=== PATIENT | female | born 1990 | race Caucasian/White ===

== ENCOUNTER → 2018-06-24 | Outpatient (CLI) | payer OTHER ==
--- NOTE | 2018-06-24 15:13 | CT ---
EXAMINATION TYPE: CT ankle RT wo con DATE OF EXAM: 06/24/2018 COMPARISON: None HISTORY: Swelling at both malleoli on RT ankle CT DLP: [address] of the right ankle with reconstruction imaging. TECHNIQUE: Unenhanced CT of the right ankle was performed with bone and soft tissue window settings s ubmitted in the axial coronal and sagittal planes. At a separate workstation 3-[id number] TR imaging was obta ined. FINDINGS: I do not see evidence for displaced fracture or dislocation. Ankle mortise is intact. Soft tissue swelling noted both medially and laterally. Underlying ligamentous injury is difficult to exclude. Consider MRI if felt to be indicated. No osseous lesion is noted. No fluid collections. IMPRESSION: 1. No evidence for a displaced fracture or dislocation of the right ankle. 2. Soft tissue swelling noted both medially and laterally as noted above.
== END | disposition home or self-care (01) ==
LOC: RADCTMAIN 14:36
PROVIDERS: ATTEND Orthopaedic Surgery
DX: S82.301A Unspecified fracture of lower end of right tibia, initial encounter for closed fracture (principal)

== ENCOUNTER → 2018-06-28 | Outpatient (CLI) | payer OTHER ==
[2018-06-28 12:33] LABS: HGB 13.2 gm/dL (11.4-16.0); MCH 34.1 pg (25.0-35.0); MCHC 33.9 g/dL (31.0-37.0); MCV 100.7 fL (80.0-100.0); Mean Platelet Volume 7.2; Platelet Count 282 k/uL (150-450); RBC 3.87 m/uL (3.80-5.40); RDW 12.6 % (11.5-15.5); WBC 7.3 k/uL (3.8-10.6)
[2018-06-28 13:50] LABS: Appearance,Urine Turbid (Clear); Bacteria,Urine Rare /hpf; Bilirubin,Urine Negative (Negative); Blood,Urine Negative (Negative); Color,Urine Yellow; Glucose,Urine (UA) Negative (Negative); Ketones,Urine Negative (Negative); Leukocyte Esterase,Urine Moderate (Negative); Mucus,Urine Few /hpf; Nitrite,Urine Negative (Negative); PH, Urine 8.5 (5.0-8.0); Protein,Urine 2+ (Negative); Specific Gravity,Urine 1.027 (1.001-1.035); Squamous Epithelial Cell,Urine 75 /hpf (0-4); WBC,Urine 18 /hpf (0-5)
[2018-06-28 18:18] LABS: Parathyroid Hormone Intact 80.8 pg/mL (14.0-72.0)
[2018-06-28 18:21] LABS: Albumin 4.6 g/dL (3.80-4.90); Albumin/Globulin Ratio 2.19 (1.60-3.17); Anion Gap 8.7 mmol/L (4.00-12.00); Calcium 9.5 mg/dL (8.7-10.3); Carbon Dioxide 28.3 mmol/L (21.6-31.8); Globulin 2.1 g/dL (1.6-3.3); Potassium 4.1 mmol/L (3.5-5.5); Total Protein 6.7 g/dL (6.2-8.2)
[2018-06-28 19:01] LABS: Vitamin D 25 Hydroxy 19.8 ng/mL (30.0-100.0)
== END | disposition home or self-care (01) ==
LOC: LABWHC1 11:52
PROVIDERS: ATTEND Physician Assistant
DX: S82.301D Unspecified fracture of lower end of right tibia, subsequent encounter for closed fracture with routine healing (principal)
CPT/HCPCS: 36415; 80053; 81001; 82306; 82310; 82652; 83970; 84100; 85027

== ENCOUNTER 2018-08-12 16:29 | Emergency (ER) | payer OTHER ==
[2018-08-12 17:49] LABS: HCT 39.5 % (34.0-46.0); HGB 13.1 gm/dL (11.4-16.0); MCH 33.7 pg (25.0-35.0); MCV 102.1 fL (80.0-100.0); Mean Platelet Volume 7.6; Platelet Count 220 k/uL (150-450); RBC 3.87 m/uL (3.80-5.40); RDW 12.2 % (11.5-15.5)
[2018-08-12 17:53] LABS: Appearance,Urine Clear (Clear); Bilirubin,Urine Negative (Negative); Blood,Urine Trace (Negative); Color,Urine Light Yellow; Glucose,Urine (UA) Negative (Negative); Ketones,Urine Negative (Negative); Leukocyte Esterase,Urine Negative (Negative); Nitrite,Urine Negative (Negative); PH, Urine 6.5 (5.0-8.0); Protein,Urine Negative (Negative); RBC,Urine 1 /hpf (0-5); Specific Gravity,Urine 1.004 (1.001-1.035); Squamous Epithelial Cell,Urine 4 /hpf (0-4); Urobilinogen,Urine <2.0 mg/dL (<2.0); WBC,Urine 4 /hpf (0-5)
[2018-08-12 18:04] LABS: ALT 25 U/L (9-52); AST 27 U/L (14-36); African American GFR (CKD) >90 (>60 ml/min/1.73 sqM); Albumin 4.6 g/dL (3.5-5.0); Alkaline Phosphatase 100 U/L (38-126); Anion Gap 9 mmol/L; Blood Urea Nitrogen 9 mg/dL (7-17); Calcium 10.1 mg/dL (8.4-10.2); Carbon Dioxide 28 mmol/L (22-30); Chloride 101 mmol/L (98-107); Glucose 94 mg/dL (74-99); Potassium 3.8 mmol/L (3.5-5.1); Sodium 138 mmol/L (137-145); Total Bilirubin 0.7 mg/dL (0.2-1.3); Total Protein 7.6 g/dL (6.3-8.2)
--- NOTE | 2018-08-12 18:23 | ED ---
Female Urogenital HPI - General Chief complaint: Vaginal Bleeding Stated complaint: BLEEDING, 5 WEEKS Time Seen by Provider: 08/12/18 16:42 Source: patient Mode of arrival: ambulatory Limitations: no limitations - History of Present Illness Initial comments: Patient is a 27-year-old, , five-week female presenting to emergency Department with vaginal bleeding. Patient reports this morning she noticed spotting and attempted to reestablish care with her previous campus receptionist but was not able to get in today. Patient does not report other vaginal discharge, vaginal itching, increased urgency or frequency or dysuria. Patient reports establishing her status using a home test. Patient is not concerned about STDs. Patient denies nausea, vomiting, diarrhea, abdominal pain or cramping. Patient reports experiencing spotting during her previous . Patient denies taking any medication to alleviate the symptoms. Patient reports Last Menstrual Period: 07/08/18 - Related Data Home Medications Medication Instructions Recorded Confirmed Bwb-Ctko-Iqmsd Acid 1 tab PO DAILY 04/16/15 04/22/15 [-U Capsule] Allergies Allergy/AdvReac Type Severity Reaction Status Date / Time No Known Allergies Allergy Verified 08/12/18 16:40 Review of Systems ROS Statement: Those systems with pertinent positive or pertinent negative responses have been documented in the HPI. ROS Other: All systems not noted in ROS Statement are negative. Past Medical History Past Medical History: No Reported History History of Any Multi-Drug Resistant Organisms: None Reported Past Surgical History: No Surgical Hx Reported Past Anesthesia/Blood Transfusion Reactions: No Reported Reaction Past Psychological History: No Psychological Hx Reported Smoking Status: Never smoker Past Alcohol Use History: None Reported Past Drug Use History: None Reported - Past Family History Mother Family Medical History: No Reported History General Exam Limitations: no limitations General appearance: alert, in no apparent distress Head exam: Present: atraumatic, normocephalic, normal inspection Eye exam: Present: normal appearance, PERRL, EOMI Pupils: Present: normal accommodation ENT exam: Present: normal exam, mucous membranes moist Neck exam: Present: normal inspection, full ROM Respiratory exam: Present: normal lung sounds bilaterally Cardiovascular Exam: Present: regular rate, normal rhythm, normal heart sounds GI/Abdominal exam: Present: soft, normal bowel sounds. Absent: distended, tenderness, guarding, rebound, rigid External exam: Present: normal external exam. Absent: erythema, swelling Speculum exam: Present: normal speculum exam. Absent: erythema, vaginal discharge, cervical discharge, vaginal bleeding, foreign body By manual exam: Present: normal by manual exam. Absent: cervical motion tenderness, adnexal tenderness, adnexal mass Extremities exam: Present: normal inspection, full ROM, normal capillary refill. Absent: pedal edema Back exam: Present: normal inspection, full ROM. Absent: CVA tenderness (R), CVA tenderness (L) Neurological exam: Present: alert, oriented X3 Psychiatric exam: Present: normal affect, normal mood Skin exam: Present: warm, intact, normal color Course Vital Signs 08/12/18 16:38 Temperature 98.3 F Pulse Rate 103 H Respiratory 20 Rate Blood Pressure 158/88 O2 Sat by Pulse 99 Oximetry Medical Decision Making - Medical Decision Making Patient is a 27-year-old 5 week female presents emergency department for vaginal bleeding. UA is positive for trace amounts of blood otherwise unremarkable. Pelvic exam is negative for blood, discharge, cervical motion tenderness or adnexal masses. Patient advised to follow-up with OB. Beta Quant is approximately 750 so a transvaginal ultrasound is not warranted because it will most likely not be able to detect an intrauterine Strict return parameters were thoroughly discussed with patient. The case was discussed with Dr. Jimenez Who is in agreement with the treatment plan. - Lab Data Result diagrams: 08/12/18 17:30 08/12/18 17:30 Lab Results 08/12/18 08/12/18 08/12/18 Range/Units 17:30 17:30 17:30 WBC 7.0 (3.8-10.6) k/uL RBC 3.87 (3.80-5.40) m/uL Hgb 13.1 (11.4-16.0) gm/dL Hct 39.5 (34.0-46.0) % MCV 102.1 H (80.0-100.0) fL MCH 33.7 (25.0-35.0) pg MCHC 33.0 (31.0-37.0) g/dL RDW 12.2 (11.5-15.5) % Plt Count 220 (150-450) k/uL Sodium (137-145) mmol/L Potassium (3.5-5.1) mmol/L Chloride (98-107) mmol/L Carbon Dioxide (22-30) mmol/L Anion Gap mmol/L BUN (7-17) mg/dL Creatinine (0.52-1.04) mg/dL Est GFR (CKD-EPI)AfAm (>60 ml/min/1.73 sqM) Est GFR (CKD-EPI)NonAf (>60 ml/min/1.73 sqM) Glucose (74-99) mg/dL Calcium (8.4-10.2) mg/dL Total Bilirubin (0.2-1.3) mg/dL AST (14-36) U/L ALT (9-52) U/L Alkaline Phosphatase (38-126) U/L Total Protein (6.3-8.2) g/dL Albumin (3.5-5.0) g/dL HCG, Quant mIU/mL Urine Color Light Yellow Urine Appearance Clear (Clear) Urine pH 6.5 (5.0-8.0) Ur Specific [place] 1.004 (1.001-1.035) Urine Protein Negative (Negative) Urine Glucose (UA) Negative (Negative) Urine Ketones Negative (Negative) Urine Blood Trace H (Negative) Urine Nitrite Negative (Negative) Urine Bilirubin Negative (Negative) Urine Urobilinogen <2.0 (<2.0) mg/dL Ur Leukocyte Esterase Negative (Negative) Urine RBC 1 (0-5) /hpf Urine WBC 4 (0-5) /hpf Ur Squamous Epith Cells 4 (0-4) /hpf Blood Type O Positive Blood Type Recheck No Antibody Screen NEGATIVE Spec Expiration Date 08/15/2018232908/12/18 08/12/18 Range/Units 17:30 17:30 WBC (3.8-10.6) k/uL RBC (3.80-5.40) m/uL Hgb (11.4-16.0) gm/dL Hct (34.0-46.0) % MCV (80.0-100.0) fL MCH (25.0-35.0) pg MCHC (31.0-37.0) g/dL RDW (11.5-15.5) % Plt Count (150-450) k/uL Sodium 138 (137-145) mmol/L Potassium 3.8 (3.5-5.1) mmol/L Chloride 101 (98-107) mmol/L Carbon Dioxide 28 (22-30) mmol/L Anion Gap 9 mmol/L BUN 9 (7-17) mg/dL Creatinine 0.79 (0.52-1.04) mg/dL Est GFR (CKD-EPI)AfAm >90 (>60 ml/min/1.73 sqM) Est GFR (CKD-EPI)NonAf >90 (>60 ml/min/1.73 sqM) Glucose 94 (74-99) mg/dL Calcium 10.1 (8.4-10.2) mg/dL Total Bilirubin 0.7 (0.2-1.3) mg/dL AST 27 (14-36) U/L ALT 25 (9-52) U/L Alkaline Phosphatase 100 (38-126) U/L Total Protein 7.6 (6.3-8.2) g/dL Albumin 4.6 (3.5-5.0) g/dL HCG, Quant 762.8 mIU/mL Urine Color Urine Appearance (Clear) Urine pH (5.0-8.0) Ur Specific [place] (1.001-1.035) Urine Protein (Negative) Urine Glucose (UA) (Negative) Urine Ketones (Negative) Urine Blood (Negative) Urine Nitrite (Negative) Urine Bilirubin (Negative) Urine Urobilinogen (<2.0) mg/dL Ur Leukocyte Esterase (Negative) Urine RBC (0-5) /hpf Urine WBC (0-5) /hpf Ur Squamous Epith Cells (0-4) /hpf Blood Type Blood Type Recheck Antibody Screen Spec Expiration Date Disposition Clinical Impression: Vaginal bleeding Disposition: HOME SELF-CARE Condition: Stable Instructions (If sedation given, give patient instructions): Ectopic (DC) Additional Instructions: Please follow up with OB. Please return to emergency department if symptoms worsen Is patient prescribed a controlled substance at d/c from ED?: No Referrals: Darrin Fisher MD [Primary Care Provider] - 1-2 days Regina Hammer MD [STAFF PHYSICIAN] - 1-2 days Time of Disposition: 18:42
[2018-08-12 19:20] VITALS: BP 144/71; PULSE 97; RESP 18; TEMP 98.1
== END 2018-08-12 19:20 | disposition home or self-care (01) ==
LOC: EC 16:29
DX: O20.9 Hemorrhage in early pregnancy, unspecified (principal); Z3A.01 Less than 8 weeks gestation of pregnancy
CPT/HCPCS: 36415; 80053; 81001; 84702; 85027; 86850; 86900; 86901; 99284

== ENCOUNTER → 2018-08-15 | Outpatient (CLI) | payer OTHER | END | disposition home or self-care (01) | LOC: LABWHC1 16:32 | PROVIDERS: ATTEND Obstetrics & Gynecology | DX: O20.0 Threatened abortion (principal); Z3A.00 Weeks of gestation of pregnancy not specified | CPT/HCPCS: 36415; 84702 ==

== ENCOUNTER 2018-08-22 16:32 | Emergency (ER) | payer OTHER ==
[2018-08-22 16:39] VITALS: BP 151/83; RESP 18; TEMP 98.3
[2018-08-22] MEDS ORDERED: SODIUM CHLORIDE 0.9% 1,000 ML IV ONE (17:03)
--- NOTE | 2018-08-22 17:03 | ED ---
General Adult HPI - General Source: patient, RN notes reviewed Mode of arrival: ambulatory Limitations: no limitations <Khanh Underwood - Last Filed: 08/22/18 19:55> <Kenny Marinelli - Last Filed: 08/22/18 20:32> - General Chief complaint: Vaginal Bleeding Stated complaint: Abn labs Time Seen by Provider: 08/22/18 16:47 - History of Present Illness Initial comments: 27-year-old currently 7 weeks presents to the emergency department for a chief complaint of vaginal bleeding. Patient states she has been vaginal bleeding for about one week. States it is very light in nature. Patient states last week her hCG levels were trending downward. However she saw her primary care provider today and had hCG levels repeated in nature and it upward to 1500. Patient states she is confused. She thought she was having a miscarriage but now is unsure. States that she then called the OB office and they recommended she go to the emergency department for possible ectopic. Patient admits to mild discomfort in the lower abdomen. Denies any significant pain. Denies any fevers or chills. Patient has not yet followed up with an OB at an appointment.Patient has no other complaints at this time including shortness of breath, chest pain, nausea or vomiting, headache, or visual changes. (Khanh Underwood) - Related Data Home Medications Medication Instructions Recorded Confirmed Dextroamphetamine/Amphetamine 30 mg PO DAILY 08/22/18 08/22/18 [Adderall Xr] Allergies Allergy/AdvReac Type Severity Reaction Status Date / Time No Known Allergies Allergy Verified 08/22/18 17:27 Review of Systems ROS Other: All systems not noted in ROS Statement are negative. <Khanh Underwood - Last Filed: 08/22/18 19:55> ROS Other: All systems not noted in ROS Statement are negative. <Kenny Marinelli - Last Filed: 08/22/18 20:32> ROS Statement: Those systems with pertinent positive or pertinent negative responses have been documented in the HPI. Past Medical History Past Medical History: No Reported History History of Any Multi-Drug Resistant Organisms: None Reported Past Surgical History: No Surgical Hx Reported Past Anesthesia/Blood Transfusion Reactions: No Reported Reaction Past Psychological History: No Psychological Hx Reported Smoking Status: Never smoker Past Alcohol Use History: None Reported Past Drug Use History: None Reported - Past Family History Mother Family Medical History: No Reported History <Khanh Underwood P - Last Filed: 08/22/18 19:55> General Exam Limitations: no limitations General appearance: alert, in no apparent distress Head exam: Present: atraumatic, normocephalic, normal inspection Eye exam: Present: normal appearance, PERRL, EOMI. Absent: scleral icterus, conjunctival injection, periorbital swelling ENT exam: Present: normal exam, mucous membranes moist Neck exam: Present: normal inspection, full ROM. Absent: tenderness, meningismus, lymphadenopathy Respiratory exam: Present: normal lung sounds bilaterally. Absent: respiratory distress, wheezes, rales, rhonchi, stridor Cardiovascular Exam: Present: regular rate, normal rhythm, normal heart sounds. Absent: systolic murmur, diastolic murmur, rubs, gallop, clicks GI/Abdominal exam: Present: soft, normal bowel sounds. Absent: distended, te nderness, guarding, rebound, rigid Neurological exam: Present: alert, oriented X3, CN II-XII intact Psychiatric exam: Present: normal affect, normal mood <Khanh Underwood P - Last Filed: 08/22/18 19:55> Course Vital Signs 08/22/18 08/22/18 16:36 19:42 Temperature 98.3 F Pulse Rate 121 H 102 H Respiratory 18 Rate Blood Pressure 151/83 O2 Sat by Pulse 100 Oximetry Medical Decision Making - Lab Data Result diagrams: 08/22/18 17:15 08/22/18 17:15 <Khanh Underwood P - Last Filed: 08/22/18 19:55> - Lab Data Result diagrams: 08/22/18 17:15 08/22/18 17:15 <Kenny Marinelli N - Last Filed: 08/22/18 20:32> - Medical Decision Making 27-year-old female with a last menstrual period of July 08 presents to the emergency department for inconsistent hCG levels and vaginal bleeding. Patient initially had hCG level of 762 on 08/12/2018 and 548 on 08/15/2018. Apparently earlier today patient had an hCG of 1700. This was repeated tonight and it is n ow 1000. Exam is generally unremarkable. Minimal lower abdominal discomfort on exam but no tenderness. CBC CMP unremarkable. ultrasound showed no IUP at this time. However it did show a prominent volume of complex peritoneal fluid, unable to see ovaries. Dr. Marinelli spoke with Dr. Rodarte. (Khanh Underwood) Patient with abnormal trending hCG, vaginal bleeding, minimal abdominal pain. Today her hCG is 1100. Ultrasound shows complex fluid collection within the peritoneum. Adnexa was not visualized on ultrasound, there is no intrauterine . There is concern for ectopic, I did discuss his case with Dr. Rodarte, who is able to review the office notes and does feel this patient has an ectopic . She recommends methotrexate. This is administered in the emergency department. Did reevaluate the patient, she is resting comfortably, no abdomi nal tenderness on exam. Heart rate improved to 90s with 1 L of IV hydration. Other vital signs are stable. She is eager for discharge. She will call the office in the morning for close follow-up. (Kenny Marinelli) - Lab Data Lab Results 08/22/18 08/22/18 08/22/18 Range/Units 17:15 17:15 18:10 WBC 11.9 H (3.8-10.6) k/uL RBC 3.41 L (3.80-5.40) m/uL Hgb 11.5 (11.4-16.0) gm/dL Hct 34.9 (34.0-46.0) % MCV 102.3 H (80.0-100.0) fL MCH 33.8 (25.0-35.0) pg MCHC 33.1 (31.0-37.0) g/dL RDW 13.6 (11.5-15.5) % Plt Count 276 (150-450) k/uL Neutrophils % 82 % Lymphocytes % 12 % Monocytes % 4 % Eosinophils % 2 % Basophils % 0 % Neutrophils # 9.8 H (1.3-7.7) k/uL Lymphocytes # 1.4 (1.0-4.8) k/uL Monocytes # 0.4 (0-1.0) k/uL Eosinophils # 0.2 (0-0.7) k/uL Basophils # 0.0 (0-0.2) k/uL Macrocytosis Slight Sodium 137 (137-145) mmol/L Potassium 3.6 (3.5-5.1) mmol/L Chloride 100 (98-107) mmol/L Carbon Dioxide 26 (22-30) mmol/L Anion Gap 11 mmol/L BUN 15 (7-17) mg/dL Creatinine 0.77 (0.52-1.04) mg/dL Est GFR (CKD-EPI)AfAm >90 (>60 ml/min/1.73 sqM) Est GFR (CKD-EPI)NonAf >90 (>60 ml/min/1.73 sqM) Glucose 94 (74-99) mg/dL Calcium 9.8 (8.4-10.2) mg/dL Total Bilirubin 1.4 H (0.2-1.3) mg/dL AST 42 H (14-36) U/L ALT 27 (9-52) U/L Alkaline Phosphatase 109 (38-126) U/L Total Protein 7.6 (6.3-8.2) g/dL Albumin 4.7 (3.5-5.0) g/dL HCG, Quant 1094.3 mIU/mL Urine Color Yellow Urine Appearance Cloudy H (Clear) Urine pH 6.0 (5.0-8.0) Ur Specific [place] 1.008 (1.001-1.035) Urine Protein Trace H (Negative) Urine Glucose (UA) Negative (Negative) Urine Ketones Negative (Negative) Urine Blood Moderate H (Negative) Urine Nitrite Negative (Negative) Urine Bilirubin Negative (Negative) Urine Urobilinogen <2.0 (<2.0) mg/dL Ur Leukocyte Esterase Moderate H (Negative) Urine RBC 3 (0-5) /hpf Urine WBC 37 H (0-5) /hpf Ur Squamous Epith Cells 12 H (0-4) /hpf Amorphous Sediment Rare H (None) /hpf Urine Bacteria Rare H (None) /hpf Urine Mucus Rare H (None) /hpf Urine HCG, Qual (Not Detectd) 08/22/18 Range/Units 18:10 WBC (3.8-10.6) k/uL RBC (3.80-5.40) m/uL Hgb (11.4-16.0) gm/dL Hct (34.0-46.0) % MCV (80.0-100.0) fL MCH (25.0-35.0) pg MCHC (31.0-37.0) g/dL RDW (11.5-15.5) % Plt Count (150-450) k/uL Neutrophils % % Lymphocytes % % Monocytes % % Eosinophils % % Basophils % % Neutrophils # (1.3-7.7) k/uL Lymphocytes # (1.0-4.8) k/uL Monocytes # (0-1.0) k/uL Eosinophils # (0-0.7) k/uL Basophils # (0-0.2) k/uL Macrocytosis Sodium (137-145) mmol/L Potassium (3.5-5.1) mmol/L Chloride (98-107) mmol/L Carbon Dioxide (22-30) mmol/L Anion Gap mmol/L BUN (7-17) mg/dL Creatinine (0.52-1.04) mg/dL Est GFR (CKD-EPI)AfAm (>60 ml/min/1.73 sqM) Est GFR (CKD-EPI)NonAf (>60 ml/min/1.73 sqM) Glucose (74-99) mg/dL Calcium (8.4-10.2) mg/dL Total Bilirubin (0.2-1.3) mg/dL AST (14-36) U/L ALT (9-52) U/L Alkaline Phosphatase (38-126) U/L Total Protein (6.3-8.2) g/dL Albumin (3.5-5.0) g/dL HCG, Quant mIU/mL Urine Color Urine Appearance (Clear) Urine pH (5.0-8.0) Ur Specific [place] (1.001-1.035) Urine Protein (Negative) Urine Glucose (UA) (Negative) Urine Ketones (Negative) Urine Blood (Negative) Urine Nitrite (Negative) Urine Bilirubin (Negative) Urine Urobilinogen (<2.0) mg/dL Ur Leukocyte Esterase (Negative) Urine RBC (0-5) /hpf Urine WBC (0-5) /hpf Ur Squamous Epith Cells (0-4) /hpf Amorphous Sediment (None) /hpf Urine Bacteria (None) /hpf Urine Mucus (None) /hpf Urine HCG, Qual Detected (Not Detectd) Disposition <Khanh Underwood P - Last Filed: 08/22/18 19:55> Is patient prescribed a controlled substance at d/c from ED?: No Time of Disposition: 20:32 <RenétaylerKenny - Last Filed: 08/22/18 20:32> Clinical Impression: Ectopic without intrauterine Disposition: HOME SELF-CARE Condition: Fair Instructions (If sedation given, give patient instructions): Methotrexate (By injection), Ectopic (DC) Referrals: Darrin Fisher MD [Primary Care Provider] - 1-2 days Regina Hammer MD [STAFF PHYSICIAN] - 1-2 days Sahara Rodarte DO [Doctor of Osteopathic Medicine] - 1-2 days
[2018-08-22 17:26] LABS: Basophils % (A) 0 %; Eosinophils # (A) 0.2 k/uL (0-0.7); Eosinophils % (A) 2 %; HCT 34.9 % (34.0-46.0); HGB 11.5 gm/dL (11.4-16.0); Lymphocytes # (A) 1.4 k/uL (1.0-4.8); Lymphocytes % (A) 12 %; MCH 33.8 pg (25.0-35.0); MCHC 33.1 g/dL (31.0-37.0); MCV 102.3 fL (80.0-100.0); Macrocytosis Slight; Mean Platelet Volume 7.7; Monocytes # (A) 0.4 k/uL (0-1.0); Monocytes % (A) 4 %; Neutrophils # (A) 9.8 k/uL (1.3-7.7); Neutrophils % (A) 82 %; Platelet Count 276 k/uL (150-450); RBC 3.41 m/uL (3.80-5.40); RDW 13.6 % (11.5-15.5); WBC 11.9 k/uL (3.8-10.6)
[2018-08-22 17:35] LABS: ALT 27 U/L (9-52); AST 42 U/L (14-36); African American GFR (CKD) >90 (>60 ml/min/1.73 sqM); Albumin 4.7 g/dL (3.5-5.0); Alkaline Phosphatase 109 U/L (38-126); Anion Gap 11 mmol/L; Blood Urea Nitrogen 15 mg/dL (7-17); Calcium 9.8 mg/dL (8.4-10.2); Carbon Dioxide 26 mmol/L (22-30); Chloride 100 mmol/L (98-107); Glucose 94 mg/dL (74-99); Potassium 3.6 mmol/L (3.5-5.1); Sodium 137 mmol/L (137-145); Total Bilirubin 1.4 mg/dL (0.2-1.3); Total Protein 7.6 g/dL (6.3-8.2)
[2018-08-22 17:51] LABS: HCG,Quantitative Serum 1094.3 mIU/mL
[2018-08-22 19:22] LABS: Appearance,Urine Cloudy (Clear); Bilirubin,Urine Negative (Negative); Blood,Urine Moderate (Negative); Color,Urine Yellow; Glucose,Urine (UA) Negative (Negative); Ketones,Urine Negative (Negative); Leukocyte Esterase,Urine Moderate (Negative); Nitrite,Urine Negative (Negative); Protein,Urine Trace (Negative); RBC,Urine 3 /hpf (0-5); Specific Gravity,Urine 1.008 (1.001-1.035); Squamous Epithelial Cell,Urine 12 /hpf (0-4); Urobilinogen,Urine <2.0 mg/dL (<2.0); WBC,Urine 37 /hpf (0-5)
--- NOTE | 2018-08-22 19:22 | US ---
EXAMINATION TYPE: OB<=14 wks transvag DATE OF EXAM: 08/22/2018 6:04 PM COMPARISON: NONE CLINICAL HISTORY: pain. Bleeding had miscarriage x 2 weeks ago beta went up from 500 to 1094.3. EXAM PERFORMED: Transvaginal (TV) and Transabdominal (TA) EXAM MEASUREMENTS: GESTATIONAL AGE / DATING MATERNAL ANATOMY Uterus: 7.4 x 4.0 x 6.0 cm Right Ovary: Obscured by fluid and bowel. Left Ovary: Obscured by fluid and bowel. Post CDS / Adnexa: Complex free fluid visualized. Presence of free fluid: Yes GESTATION / SURVEY IUP: No IUP seen at this time. Beta HcG (if available): 1094.3 IMPRESSION: 1. PROMINENT VOLUME OF COMPLEX PERITONEAL FLUID VISUALIZED; UNABLE TO SEE OVARIES AT THIS TIME. 2. NO IUP SEEN AT THIS TIME. MTDD
[2018-08-22 19:23] LABS: Amorphous Sediment,Urine Rare /hpf; Bacteria,Urine Rare /hpf; Mucus,Urine Rare /hpf
[2018-08-22 19:42] VITALS: PULSE 102
[2018-08-22] MEDS ORDERED: METHOTREXATE SODIUM (PF) 25 MG/ML 2 ML VIAL IM ONE (20:19)
== END 2018-08-22 21:30 | disposition home or self-care (01) ==
LOC: EC 16:32
DX: O00.90 Unspecified ectopic pregnancy without intrauterine pregnancy (principal); Z3A.01 Less than 8 weeks gestation of pregnancy; Z79.899 Other long term (current) drug therapy
CPT/HCPCS: 36415; 80053; 85025; 81001; 81025; 84702; 76801; 99284; 96360; 96372; J9260; 76817

== ENCOUNTER 2018-08-23 11:46 | Emergency (ER) | payer OTHER ==
[2018-08-23] MEDS ORDERED: SODIUM CHLORIDE 0.9% 1,000 ML IV ONE (11:56)
--- NOTE | 2018-08-23 12:19 | ED ---
Female Urogenital HPI - General Chief complaint: Abdominal Pain Stated complaint: Abd.pain Time Seen by Provider: 08/23/18 11:56 Source: patient, RN notes reviewed, old records reviewed Mode of arrival: ambulatory Limitations: no limitations - History of Present Illness Initial comments: This is a 27-year-old female the ER for evaluation. Patient has history of known ectopic sent to ER by OB who did outpatient ultrasound today and noticed blood in her pelvis. Patient was in our emergency room yesterday was given methotrexate for ectopic . Patient states she developed increasing pain and vaginal bleeding over the night. Weakness feels dehydrated and feels near syncopal. Patient presents to ER complaining of abdominal pain and thinks states that she feels like she is dehydrated currently. MD Complaint: vaginal bleeding, pelvic pain -: days(s) Location: suprapubic Severity: severe Severity scale (1-10): 9 Quality: sharp, aching Consistency: constant Improves with: none Worsens with: none Last Menstrual Period: 07/08/18 Patient : Yes (With known ectopic) Associated Symptoms: vaginal bleeding, abdominal pain, nausea/vomiting, weakness - Related Data Home Medications Medication Instructions Recorded Confirmed Dextroamphetamine/Amphetamine 30 mg PO DAILY 08/22/18 08/23/18 [Adderall Xr] Wqi-Kmsd-Opunh Acid 1 cap PO DAILY 08/23/18 08/23/18 [-U Capsule (formulary)] Allergies Allergy/AdvReac Type Severity Reaction Status Date / Time No Known Allergies Allergy Verified 08/23/18 12:31 Review of Systems ROS Statement: Those systems with pertinent positive or pertinent negative responses have been documented in the HPI. ROS Other: All systems not noted in ROS Statement are negative. Past Medical History Past Medical History: No Reported History History of Any Multi-Drug Resistant Organisms: None Reported Past Surgical History: No Surgical Hx Reported Past Anesthesia/Blood Transfusion Reactions: No Reported Reaction Past Psychological History: No Psychological Hx Reported Smoking Status: Never smoker Past Alcohol Use History: None Reported Past Drug Use History: None Reported - Past Family History Mother Family Medical History: No Reported History General Exam Limitations: no limitations General appearance: alert, in no apparent distress Head exam: Present: atraumatic, normocephalic, normal inspection Eye exam: Present: normal appearance, PERRL, EOMI. Absent: scleral icterus, conjunctival injection, periorbital swelling ENT exam: Present: normal exam, mucous membranes moist Neck exam: Present: normal inspection. Absent: tenderness, meningismus, lymphadenopathy Respiratory exam: Present: normal lung sounds bilaterally. Absent: respiratory distress, wheezes, rales, rhonchi, stridor Cardiovascular Exam: Present: normal rhythm, tachycardia, normal heart sounds. Absent: systolic murmur, diastolic murmur, rubs, gallop, clicks GI/Abdominal exam: Present: soft, distended, tenderness, guarding, normal bowel sounds. Absent: rebound, rigid Extremities exam: Present: normal inspection, full ROM, normal capillary refill. Absent: tenderness, pedal edema, joint swelling, calf tenderness Back exam: Present: normal inspection Neurological exam: Present: alert, oriented X3, CN II-XII intact Psychiatric exam: Present: normal affect, normal mood Skin exam: Present: warm, dry, intact, normal color. Absent: rash Course Vital Signs 08/23/18 08/23/18 11:52 12:50 Temperature 97.6 F Pulse Rate 126 H 96 Respiratory 20 18 Rate Blood Pressure 108/74 123/75 O2 Sat by Pulse 98 100 Oximetry - Reevaluation(s) Reevaluation #1: 08/23/18 13:05 Medical record is reviewed Reevaluation #2: 08/23/18 13:05 Hemoglobin has dropped from 11.5 to 9 Medical Decision Making - Medical Decision Making 27 female the ER for evaluation. Patient is history of ectopic given methotrexate now with rupture. Hemoglobin is drop 3 times. Patient will be admitted for surgery by OB. Spoke with Dr. Rodarte who is agreeable accepts patient - Lab Data Result diagrams: 08/23/18 11:55 08/23/18 11:55 Lab Results 08/23/18 08/23/18 Range/Units 11:55 11:55 WBC 10.5 (3.8-10.6) k/uL RBC 2.57 L (3.80-5.40) m/uL Hgb 8.9 L D (11.4-16.0) gm/dL Hct 26.3 L (34.0-46.0) % MCV 102.4 H (80.0-100.0) fL MCH 34.5 (25.0-35.0) pg MCHC 33.7 (31.0-37.0) g/dL RDW 15.5 (11.5-15.5) % Plt Count 245 (150-450) k/uL Neutrophils % 88 % Lymphocytes % 8 % Monocytes % 3 % Eosinophils % 1 % Basophils % 0 % Neutrophils # 9.2 H (1.3-7.7) k/uL Lymphocytes # 0.8 L (1.0-4.8) k/uL Monocytes # 0.3 (0-1.0) k/uL Eosinophils # 0.1 (0-0.7) k/uL Basophils # 0.0 (0-0.2) k/uL Macrocytosis Slight Sodium 137 (137-145) mmol/L Potassium 3.9 (3.5-5.1) mmol/L Chloride 105 (98-107) mmol/L Carbon Dioxide 24 (22-30) mmol/L Anion Gap 8 mmol/L BUN 12 (7-17) mg/dL Creatinine 0.55 (0.52-1.04) mg/dL Est GFR (CKD-EPI)AfAm >90 (>60 ml/min/1.73 sqM) Est GFR (CKD-EPI)NonAf >90 (>60 ml/min/1.73 sqM) Glucose 137 H (74-99) mg/dL Calcium 8.9 (8.4-10.2) mg/dL Phosphorus 3.7 (2.5-4.5) mg/dL Magnesium 1.9 (1.6-2.3) mg/dL Total Bilirubin 1.5 H (0.2-1.3) mg/dL AST 31 (14-36) U/L ALT 26 (9-52) U/L Alkaline Phosphatase 71 (38-126) U/L Total Protein 6.3 (6.3-8.2) g/dL Albumin 3.8 (3.5-5.0) g/dL Critical Care Time Critical Care Time: Yes Total Critical Care Time: 31 Disposition Clinical Impression: Anemia, Ectopic , Vaginal bleeding, Ectopic without intrauterine Disposition: ADMITTED IP TO THIS [facility] Condition: Serious Is patient prescribed a controlled substance at d/c from ED?: No Referrals: Darrin Fisher MD [Primary Care Provider] - 1-2 days
[2018-08-23] MEDS ORDERED: ACETAMINOPHEN IV (For NPO) 1,000 MG in EMPTY BAG 1 BAG IVPB STA (12:35)
[2018-08-23 12:44] LABS: Basophils % (A) 0 %; Eosinophils # (A) 0.1 k/uL (0-0.7); Eosinophils % (A) 1 %; HCT 26.3 % (34.0-46.0); Lymphocytes # (A) 0.8 k/uL (1.0-4.8); Lymphocytes % (A) 8 %; MCH 34.5 pg (25.0-35.0); MCHC 33.7 g/dL (31.0-37.0); MCV 102.4 fL (80.0-100.0); Macrocytosis Slight; Mean Platelet Volume 8.5; Monocytes # (A) 0.3 k/uL (0-1.0); Monocytes % (A) 3 %; Neutrophils # (A) 9.2 k/uL (1.3-7.7); Neutrophils % (A) 88 %; Platelet Count 245 k/uL (150-450); RBC 2.57 m/uL (3.80-5.40); RDW 15.5 % (11.5-15.5); WBC 10.5 k/uL (3.8-10.6)
[2018-08-23 12:46] LABS: HGB 8.9 gm/dL (11.4-16.0)
[2018-08-23 12:47] LABS: ALT 26 U/L (9-52); AST 31 U/L (14-36); African American GFR (CKD) >90 (>60 ml/min/1.73 sqM); Albumin 3.8 g/dL (3.5-5.0); Alkaline Phosphatase 71 U/L (38-126); Anion Gap 8 mmol/L; Blood Urea Nitrogen 12 mg/dL (7-17); Calcium 8.9 mg/dL (8.4-10.2); Carbon Dioxide 24 mmol/L (22-30); Chloride 105 mmol/L (98-107); Glucose 137 mg/dL (74-99); Magnesium 1.9 mg/dL (1.6-2.3); Phosphorus 3.7 mg/dL (2.5-4.5); Potassium 3.9 mmol/L (3.5-5.1); Sodium 137 mmol/L (137-145); Total Bilirubin 1.5 mg/dL (0.2-1.3); Total Protein 6.3 g/dL (6.3-8.2)
[2018-08-23] MEDS ORDERED: ceFAZolin IN SWFI 2 GM/20 ML SYRINGE IVP ONE (13:03)
[2018-08-23 13:04] LABS: HCG,Quantitative Serum 649.4 mIU/mL
[2018-08-23 13:05] LABS: INR 0.9 (<1.2); Prothrombin Time 9.4 sec (9.0-12.0)
--- NOTE | 2018-08-23 13:09 | P.HPOB ---
History of Present Illness H&P Date: 08/23/18 Chief Complaint: Ectopic This is a 27-year-old 3 para 2001 at a proximally 6 weeks of gestation with a last menstrual period in July 08. Patient had been being followed for questionable miscarriage early in the . She was seen in the emergency department on 08/12/18 with complaints of spotting. Patient was noted to be early with a beta hCG of 762.8, blood type of O+. Patient had a repeat beta hCG drawn which dropped down into the 500s. Patient presented to the emergency department last evening with complaints of continued vaginal bleeding. Patient was noted to be stable her hemoglobin was stable along with her vitals. Beta hCG had noted to increase to 1100 therefore diagnosis of ectopic was made. Patient was given methotrexate treatment as she was stable and in the emergency department and was a reliable patient. Patient then noted increasing pain over the evening and was seen in the office ectopic was diagnosed along with free fluid therefore patient was sent to the emergency department for surgical management of this ectopic . Review of Systems Constitutional: Reports fatigue, Denies chills, Denies fever Ears, nose, mouth and throat: Denies headache Cardiovascular: Denies leg edema Respiratory: Denies dyspnea Gastrointestinal: Denies nausea, Denies vomiting Past Medical History Past Medical History: No Reported History History of Any Multi-Drug Resistant Organisms: None Reported Past Surgical History: No Surgical Hx Reported Past Anesthesia/Blood Transfusion Reactions: No Reported Reaction Past Psychological History: No Psychological Hx Reported Smoking Status: Never smoker Past Alcohol Use History: None Reported Past Drug Use History: None Reported - Past Family History Mother Family Medical History: No Reported History Medications and Allergies Home Medications Medication Instructions Recorded Confirmed Type Dextroamphetamine/Amphetamine 30 mg PO DAILY 08/22/18 08/23/18 History [Adderall Xr] Qic-Nkkz-Tuuzo Acid 1 cap PO DAILY 08/23/18 08/23/18 History [-U Capsule (formulary)] Allergies Allergy/AdvReac Type Severity Reaction Status Date / Time No Known Allergies Allergy Verified 08/23/18 12:31 Exam Osteopathic Statement: *. No significant issues noted on an osteopathic structural exam other than those noted in the History and Physical/Consult. Vital Signs Temp Pulse Resp BP Pulse Ox 08/23/18 12:50 96 18 123/75 100 08/23/18 11:52 97.6 F 126 H 20 108/74 98 Intake and Output 08/22/18 08/23/18 08/23/18 22:59 06:59 14:59 Other: Weight 86.455 kg Targeted physical exam was performed on this patient in general this is a well- nourished well-developed female that appears uncomfortable. Patient is on her s lisandro with her legs drawn up, she exhibits nonlabored breathing in her heart has a regular rate and rhythm. Her abdomen is tender to palpation, vaginal exam is deferred at this time given above diagnosis. Results Result Diagrams: 08/23/18 11:55 08/23/18 11:55 Abnormal Lab Results - Last 24 Hours (Table) 08/23/18 08/23/18 Range/Units 11:55 11:55 RBC 2.57 L (3.80-5.40) m/uL Hgb 8.9 L D (11.4-16.0) gm/dL Hct 26.3 L (34.0-46.0) % MCV 102.4 H (80.0-100.0) fL Neutrophils # 9.2 H (1.3-7.7) k/uL Lymphocytes # 0.8 L (1.0-4.8) k/uL Glucose 137 H (74-99) mg/dL Total Bilirubin 1.5 H (0.2-1.3) mg/dL Assessment and Plan (1) Ectopic Current Visit: Yes Status: Acute Code(s): O00.90 - UNSPECIFIED ECTOPIC WITHOUT INTRAUTERINE SNOMED Code(s): 09032364 (2) Acute blood loss anemia Narrative/Plan: From her known ectopic, will monitor and manage appropriately given symptoms and level of hemoglobin. Current Visit: Yes Status: Acute Code(s): D62 - ACUTE POSTHEMORRHAGIC ANEMIA SNOMED Code(s): 659217988 Plan: Patient is seen in the emergency department and surgical management is discussed with her and her family. Removal of the fallopian tube is discussed, given the ectopic . Family and patient are understanding although upset. Decreased fertility as discussed with patient given the removal of one fallopian tube. Risks of surgery are discussed including but not limited to infection, bleeding, damage to bladder, bowel, ureteric or other pelvic structures. Patient states understanding. We will attempt to do this laparoscopically given she is stable on vital signs. She understands and will be taken up to the oper ating suite.
[2018-08-23 13:13] LABS: Partial Thromboplastin Time 20.9 sec (22.0-30.0)
[2018-08-23] MEDS ORDERED: DEXAMETHASONE SOD PHOS (MDV) 100 MG/10 ML VIAL IVP ONE (13:30)
[2018-08-23] MEDS ORDERED: ONDANSETRON 4 MG/2 ML VIAL IVP ONE (13:31)
[2018-08-23] MEDS ORDERED: FAMOTIDINE 20 MG/2 ML VIAL IVP ONE (13:31)
[2018-08-23] MEDS ORDERED: IV FLUID CONTINUATION 50 ML IV ONE (13:32)
[2018-08-23] MEDS ORDERED: LIDOCAINE 1% INJ 10MG/ML (20 ML MDV) ONE (13:36)
[2018-08-23] MEDS ORDERED: PROPOFOL 10 MG/ML 20 ML VIAL IV ONE (13:36)
[2018-08-23] MEDS ORDERED: GLYCOPYRROLATE 0.2 MG/ML 2 ML VIAL ONE (13:36)
[2018-08-23] MEDS ORDERED: MIDAZOLAM 2 MG/2 ML VIAL ONE (13:36)
[2018-08-23] MEDS ORDERED: BUPIVACAINE (PF) 0.25% 30 ML VIAL SQ ONE ×3 (13:36→14:29)
[2018-08-23] MEDS ORDERED: SUCCINYLCHOLINE CHLORIDE 100 MG/5 ML SYR IV ONE (13:36)
[2018-08-23] MEDS ORDERED: NEOSTIGMINE 1 MG/ML 10 ML VIAL ONE (13:36)
[2018-08-23] MEDS ORDERED: fentaNYL (PF) 50 MCG/ML 2 ML AMP ONE (13:36)
[2018-08-23] MEDS ORDERED: ROCURONIUM BROMIDE 10 MG/ML 10 ML VIAL IV ONE (13:36)
[2018-08-23] MEDS ORDERED: LACTATED RINGERS 1,000 ML IV ONE ×3 (13:41→14:43)
--- NOTE | 2018-08-23 14:39 | P.OP ---
Date of Procedure: 08/23/18 Preoperative Diagnosis: Ectopic , hemoperitoneum Postoperative Diagnosis: Same Procedure(s) Performed: Operative laparoscopy with evacuation of hemoperitoneum, left salpingectomy Surgeon: Sahara Rodarte Manager Home #1: Иван Chan Estimated Blood Loss (ml): 10 IV fluids (ml): 900 Urine output (ml): 100 Pathology: other (Left fallopian tube) Condition: stable Disposition: PACU Indications for Procedure: Ectopic Operative Findings: Pneumoperitoneum left fallopian tube with noted ectopic and area of rupture Description of Procedure: Patient was seen in the emergency department and procedure was reviewed with patient and patient's family. Risks of decreased fertility given the fact that her fallopian tube is most likely damage and will need to be taken as discussed all questions are answered and patient was taken back to the operating suite. General anesthesia was obtained by the anesthesia Department without difficulty. Patient was then prepped and draped in normal sterile fashion in the dorsal lithotomy position. A retrobulbar catheter was then used to drain the bladder of clear yellow urine. A speculum was placed the anterior lip the cervix is visualized and grasped with a single-tooth tenaculum, the an [place] uterine manipulator was advanced into the cervix as a means to manipulate the uterus throughout the procedure. Attention was then turned to the patient's abdomen where in the umbilical fold a small skin incision was made. Through this incision appears needles placed. Once the Veress needle was deemed to be in the proper position with a drop of CO2 pressure with insufflation of CO2 gas CO2 insufflation was allowed to occur. 3 L of gas or used to obtain pneumoperitoneum. At this time a 10 mm trocar and sleeve is placed under direct visualization. The above-noted findings are visualized. An additional port was placed in the right lower quadrant 2 cm from the ASIS. This is placed under direct visualization. At this time the suction rack carrier was placed in 900 mL of blood was removed from the patient's abdomen. The fallopian tube was then elevated ectopic was identified. The additional port site on the left was then placed 2 finger breaths from the ASIS under direct visualization. The LigaSure device was then placed into the abdomen and the fallopian tube was then transected through the mesosalpinx with good hemostasis being appreciated. The abdomen was then copiously irrigated hemostasis was appreciated in the mesosalpinx pedicle. At this time all instruments were removed from the earl ent's abdomen WERE correct 2. Attention was then turned the patient's abdomen where the skin incisions were closed with 4-0 Vicryl in a subcuticular fashion Steri-Strips and sterile dressings were applied as needed. All instruments removed the patient's vaginal vault the cervix was noted to be hemostatic after the single-tooth tenaculum had been removed. All counts are correct 2 patient tolerated procedure well and is resting comfortably in the PACU.
[2018-08-23 15:15] VITALS: RESP 16; TEMP 97.1
[2018-08-23] MEDS ORDERED: HYDROmorphone 1 MG/ML 1 ML SYRINGE IVP ONE (15:26)
[2018-08-23 15:32] LABS: HCT 21.2 % (34.0-46.0); MCH 34.9 pg (25.0-35.0); MCHC 33.1 g/dL (31.0-37.0); MCV 105.4 fL (80.0-100.0); Macrocytosis Moderate; Mean Platelet Volume 8.4; Platelet Count 185 k/uL (150-450); RBC 2.02 m/uL (3.80-5.40); RDW 15.2 % (11.5-15.5); WBC 9.9 k/uL (3.8-10.6)
[2018-08-23] MEDS ORDERED: Acetaminophen-Codeine 300-30mg TAB PO ONE (17:20)
[2018-08-23 18:13] VITALS: BP 125/83; PULSE 100
== END 2018-08-23 13:11 | disposition home or self-care (01) ==
LOC: EC 11:46
DX: O00.90 Unspecified ectopic pregnancy without intrauterine pregnancy (principal); N98.9 Complication associated with artificial fertilization, unspecified; D64.9 Anemia, unspecified; Z79.899 Other long term (current) drug therapy
CPT/HCPCS: 99291 ×2; 96365 ×2; 36415; 86900; 86901; 88305; 80053; 83735; 84100; 85025; 85027; 85610; 85730; 86850; 84702; 59151; J2250; J2710; J2405; J2001; J3010; J1170; J1100; J0131; J0330; J2704; J0690

== ENCOUNTER 2020-05-08 22:11 | Emergency (ER) | payer OTHER ==
[2020-05-08] MEDS ORDERED: SODIUM CHLORIDE 0.9% 1,000 ML IV ONE (22:30)
--- NOTE | 2020-05-08 22:46 | ED ---
Female Urogenital HPI - General Chief complaint: Vaginal Bleeding Stated complaint: Vaginal Bleeding, 18 weeks Time Seen by Provider: 05/08/20 22:30 Source: patient, RN notes reviewed, old records reviewed Mode of arrival: ambulatory Limitations: no limitations - History of Present Illness Initial comments: This is a 29-year-old female with prior history of miscarriage one live childbirth coming in for severe anxiety secondary to vaginal bleeding of p regnancy, patient states it may be related to a fall to her knees when she noticed some blood in past of blood clot from her vagina. Patient. Anxious and concerned secondary to history of miscarriage. MD Complaint: vaginal bleeding (In ) -: hour(s) Location: suprapubic Radiation: non-radiating Severity: mild Severity scale (1-10): 2 Quality: other (No pain) Consistency: now resolved (Bleeding does seem to have stopped) Improves with: none Worsens with: none Last Menstrual Period: 01/02/20 Associated Symptoms: denies other symptoms - Related Data Home Medications Medication Instructions Recorded Confirmed Aga-Ghow-Leaws Acid 1 cap PO DAILY 08/23/18 05/14/20 [-U Capsule (formulary)] Allergies Allergy/AdvReac Type Severity Reaction Status Date / Time No Known Allergies Allergy Verified 05/14/20 15:00 Review of Systems ROS Statement: Those systems with pertinent positive or pertinent negative responses have been documented in the HPI. ROS Other: All systems not noted in ROS Statement are negative. Past Medical History Past Medical History: No Reported History History of Any Multi-Drug Resistant Organisms: None Reported Past Surgical History: No Surgical Hx Reported Past Anesthesia/Blood Transfusion Reactions: No Reported Reaction Past Psychological History: No Psychological Hx Reported Smoking Status: Never smoker Past Alcohol Use History: None Reported Past Drug Use History: None Reported - Past Family History Mother Family Medical History: No Reported History General Exam Limitations: no limitations General appearance: alert, in no apparent distress, anxious Head exam: Present: atraumatic, normocephalic, normal inspection Eye exam: Present: normal appearance, PERRL, EOMI. Absent: scleral icterus, conjunctival injection, periorbital swelling ENT exam: Present: normal exam, mucous membranes moist Neck exam: Present: normal inspection. Absent: tenderness, meningismus, lymphadenopathy Respiratory exam: Present: normal lung sounds bilaterally. Absent: respiratory distress, wheezes, rales, rhonchi, stridor Cardiovascular Exam: Present: normal rhythm, tachycardia, normal heart sounds. Absent: systolic murmur, diastolic murmur, rubs, gallop, clicks GI/Abdominal exam: Present: soft, normal bowel sounds. Absent: distended, tenderness, guarding, rebound, rigid Extremities exam: Present: normal inspection, full ROM, normal capillary refill. Absent: tenderness, pedal edema, joint swelling, calf tenderness Back exam: Present: normal inspection Neurological exam: Present: alert, oriented X3, CN II-XII intact Psychiatric exam: Present: normal affect, normal mood Skin exam: Present: warm, dry, intact, normal color. Absent: rash Course Vital Signs 05/08/20 05/08/20 05/09/20 22:20 23:40 00:38 Temperature 97.4 F L 97.8 F Pulse Rate 126 H 106 H 98 Respiratory 16 20 20 Rate Blood Pressure 150/98 150/91 145/96 O2 Sat by Pulse 99 100 98 Oximetry - Reevaluation(s) Reevaluation #1: Medical record is reviewed Patient no distress here in the ER is improved Spoke with patient regarding findings, questions are answered Patient reassured, feels very good regarding findings here in the ER - Consultations Consultation #1: Spoke with patient's OB, Dr. Rodarte who is aware of patient and will see tomorrow in office Medical Decision Making - Medical Decision Making 29 female with threatened miscarriage her second trimester secondary to vaginal bleeding of . Ultrasound is otherwise negative patient can be discharged to follow-up with OB tomorrow - Lab Data Result diagrams: 05/08/20 22:50 05/08/20 22:50 Lab Results 05/08/20 05/08/20 05/08/20 Range/Units 22:42 22:50 22:50 WBC 9.9 (3.8-10.6) k/uL RBC 3.82 (3.80-5.40) m/uL Hgb 12.9 (11.4-16.0) gm/dL Hct 36.7 (34.0-46.0) % MCV 96.2 (80.0-100.0) fL MCH 33.7 (25.0-35.0) pg MCHC 35.1 (31.0-37.0) g/dL RDW 12.4 (11.5-15.5) % Plt Count 175 (150-450) k/uL MPV 8.3 Neutrophils % 72 % Lymphocytes % 20 % Monocytes % 3 % Eosinophils % 3 % Basophils % 0 % Neutrophils # 7.2 (1.3-7.7) k/uL Lymphocytes # 2.0 (1.0-4.8) k/uL Monocytes # 0.3 (0-1.0) k/uL Eosinophils # 0.3 (0-0.7) k/uL Basophils # 0.0 (0-0.2) k/uL PT 9.8 (9.0-12.0) sec INR 0.9 (<1.2) APTT 20.4 L (22.0-30.0) sec Sodium (137-145) mmol/L Potassium (3.5-5.1) mmol/L Chloride (98-107) mmol/L Carbon Dioxide (22-30) mmol/L Anion Gap mmol/L BUN (7-17) mg/dL Creatinine (0.52-1.04) mg/dL Est GFR (CKD-EPI)AfAm (>60 ml/min/1.73 sqM) Est GFR (CKD-EPI)NonAf (>60 ml/min/1.73 sqM) Glucose (74-99) mg/dL Calcium (8.4-10.2) mg/dL Total Bilirubin (0.2-1.3) mg/dL AST (14-36) U/L ALT (4-34) U/L Alkaline Phosphatase (38-126) U/L Total Protein (6.3-8.2) g/dL Albumin (3.5-5.0) g/dL Urine Color Urine Appearance (Clear) Urine pH (5.0-8.0) Ur Specific [place] (1.001-1.035) Urine Protein (Negative) Urine Glucose (UA) (Negative) Urine Ketones (Negative) Urine Blood (Negative) Urine Nitrite (Negative) Urine Bilirubin (Negative) Urine Urobilinogen (<2.0) mg/dL Ur Leukocyte Esterase (Negative) Urine RBC (0-5) /hpf Urine WBC (0-5) /hpf Blood Type O Positive Blood Type Recheck O Pos Bld Type Recheck Status No 05/08/20 05/08/20 Range/Units 22:50 22:50 WBC (3.8-10.6) k/uL RBC (3.80-5.40) m/uL Hgb (11.4-16.0) gm/dL Hct (34.0-46.0) % MCV (80.0-100.0) fL MCH (25.0-35.0) pg MCHC (31.0-37.0) g/dL RDW (11.5-15.5) % Plt Count (150-450) k/uL MPV Neutrophils % % Lymphocytes % % Monocytes % % Eosinophils % % Basophils % % Neutrophils # (1.3-7.7) k/uL Lymphocytes # (1.0-4.8) k/uL Monocytes # (0-1.0) k/uL Eosinophils # (0-0.7) k/uL Basophils # (0-0.2) k/uL PT (9.0-12.0) sec INR (<1.2) APTT (22.0-30.0) sec Sodium 137 (137-145) mmol/L Potassium 3.8 (3.5-5.1) mmol/L Chloride 102 (98-107) mmol/L Carbon Dioxide 23 (22-30) mmol/L Anion Gap 12 mmol/L BUN 9 (7-17) mg/dL Creatinine 1.03 (0.52-1.04) mg/dL Est GFR (CKD-EPI)AfAm 84 (>60 ml/min/1.73 sqM) Est GFR (CKD-EPI)NonAf 73 (>60 ml/min/1.73 sqM) Glucose 117 H (74-99) mg/dL Calcium 9.9 (8.4-10.2) mg/dL Total Bilirubin 0.4 (0.2-1.3) mg/dL AST 27 (14-36) U/L ALT 22 (4-34) U/L Alkaline Phosphatase 74 (38-126) U/L Total Protein 7.1 (6.3-8.2) g/dL Albumin 4.3 (3.5-5.0) g/dL Urine Color Dark Red Urine Appearance Turbid H (Clear) Urine pH 7.0 (5.0-8.0) Ur Specific [place] 1.019 (1.001-1.035) Urine Protein 2+ H (Negative) Urine Glucose (UA) Negative (Negative) Urine Ketones Negative (Negative) Urine Blood Large H (Negative) Urine Nitrite Negative (Negative) Urine Bilirubin Negative (Negative) Urine Urobilinogen <2.0 (<2.0) mg/dL Ur Leukocyte Esterase Trace H (Negative) Urine RBC >182 H (0-5) /hpf Urine WBC 149 H (0-5) /hpf Blood Type Blood Type Recheck Bld Type Recheck Status - Radiology Data Radiology results: report reviewed ( ultrasound does show positive IUP good heart rate), image reviewed Disposition Clinical Impression: Vaginal bleeding during Disposition: HOME SELF-CARE Condition: Good Instructions (If sedation given, give patient instructions): Non-Threatening First Trimester Vaginal Bleed (ED) Is patient prescribed a controlled substance at d/c from ED?: No Referrals: Sahara Rodarte DO [Doctor of Osteopathic Medicine] - 1-2 days
[2020-05-08 23:02] LABS: Basophils % (A) 0 %; Eosinophils # (A) 0.3 k/uL (0-0.7); Eosinophils % (A) 3 %; HCT 36.7 % (34.0-46.0); HGB 12.9 gm/dL (11.4-16.0); Lymphocytes % (A) 20 %; MCH 33.7 pg (25.0-35.0); MCHC 35.1 g/dL (31.0-37.0); MCV 96.2 fL (80.0-100.0); Mean Platelet Volume 8.3; Monocytes # (A) 0.3 k/uL (0-1.0); Monocytes % (A) 3 %; Neutrophils # (A) 7.2 k/uL (1.3-7.7); Neutrophils % (A) 72 %; Platelet Count 175 k/uL (150-450); RBC 3.82 m/uL (3.80-5.40); RDW 12.4 % (11.5-15.5); WBC 9.9 k/uL (3.8-10.6)
[2020-05-08 23:12] LABS: Albumin 4.3 g/dL (3.5-5.0); Calcium 9.9 mg/dL (8.4-10.2); Potassium 3.8 mmol/L (3.5-5.1); Total Bilirubin 0.4 mg/dL (0.2-1.3); Total Protein 7.1 g/dL (6.3-8.2)
[2020-05-08 23:18] LABS: Appearance,Urine Turbid (Clear); Bilirubin,Urine Negative (Negative); Blood,Urine Large (Negative); Color,Urine Dark Red; Glucose,Urine (UA) Negative (Negative); Ketones,Urine Negative (Negative); Leukocyte Esterase,Urine Trace (Negative); Nitrite,Urine Negative (Negative); Protein,Urine 2+ (Negative); RBC,Urine >182 /hpf (0-5); Specific Gravity,Urine 1.019 (1.001-1.035); Urobilinogen,Urine <2.0 mg/dL (<2.0); WBC,Urine 149 /hpf (0-5)
[2020-05-08 23:24] LABS: INR 0.9 (<1.2); Prothrombin Time 9.8 sec (9.0-12.0)
[2020-05-08 23:31] LABS: Partial Thromboplastin Time 20.4 sec (22.0-30.0)
--- NOTE | 2020-05-08 23:51 | US ---
EXAMINATION TYPE: US OB >= 14 wk fetus DATE OF EXAM: 05/08/2020 COMPARISON: None CLINICAL HISTORY: painBleeding. . Patient had ectopic and 2 miscarriages. Hx left fall opian tube removed. TECHNIQUE: Transabdominal (TA) GESTATIONAL AGE / DATING Physician Established: (18 weeks/1 day) EDC: 10/08/2020 Dates by LMP: Unknown. Dates by First Scan: This is first scan. Dates by Current Scan: (17 weeks/6 days) EDC: 10/10/2020 SURVEY IUP: Single PLACENTA: Anterior. Heterogeneous, hypoechoic area seen measurin.5 x 2.5 x 2.2 cm. PREVIA: No Previa seen. PRIETO: 13.17 cm Normal CERVICAL LENGTH (transabdominal: norm > 3.0cm): 3.86 cm BIOMETRY PRESENTATION: Vertex LIE: Oblique BPD: 3.77 cm 17 weeks / 4 days HC: 15.04 cm 18 weeks / 1 day AC: 12.41 cm 18 weeks / 0 days FL: 2.59 cm 17 weeks / 6 days ESTIMATED WEIGHT IN GRAMS: 217.35 grams ESTIMATED WEIGHT IN LBS/OZ: 0 lbs. 8 oz. WEIGHT PERCENTAGE BASED ON ESTABLISHED DATES: 33.7% HC/AC: 1.21 Normal FL/AC: 20.87 HEART RATE: 149 bpm RHYTHM: Normal IMPRESSION: The ultrasound gestational age is 17 weeks and 6 days. No complicating process seen.
[2020-05-08 23:53] VITALS: RESP 20
[2020-05-09 00:40] VITALS: BP 145/96; PULSE 98; TEMP 97.8
== END 2020-05-09 00:38 | disposition home or self-care (01) ==
LOC: EC 22:11
DX: O20.0 Threatened abortion (principal); O99.342 Other mental disorders complicating pregnancy, second trimester; F41.9 Anxiety disorder, unspecified; Z3A.18 18 weeks gestation of pregnancy; Z87.59 Personal history of other complications of pregnancy, childbirth and the puerperium
CPT/HCPCS: 36415; 76805; 80053; 81001; 85025; 85610; 85730; 86900; 86901; 87086; 96360; 99285

== ENCOUNTER 2020-05-14 14:23 | Outpatient (CLI) | payer OTHER ==
[2020-05-14 15:04] VITALS: RESP 16
[2020-05-14 16:22] LABS: Appearance,Urine Cloudy (Clear); Bilirubin,Urine Negative (Negative); Blood,Urine Small (Negative); Color,Urine Yellow; Glucose,Urine (UA) Negative (Negative); Ketones,Urine 1+ (Negative); Leukocyte Esterase,Urine Trace (Negative); Mucus,Urine Rare /hpf; Nitrite,Urine Negative (Negative); PH, Urine 6.5 (5.0-8.0); Protein,Urine Trace (Negative); RBC,Urine 1 /hpf (0-5); Specific Gravity,Urine 1.019 (1.001-1.035); Squamous Epithelial Cell,Urine 4 /hpf (0-4); Urobilinogen,Urine <2.0 mg/dL (<2.0); WBC,Urine 4 /hpf (0-5)
[2020-05-14 16:33] LABS: Creatinine,Urine Random 148.8 mg/dL; Protein/Creatinine Ratio,Urine 0.06
[2020-05-14 16:34] LABS: Creatinine,Urine Random 147.3 mg/dL
[2020-05-14 16:46] LABS: Basophils % (A) 0 %; Eosinophils # (A) 0.1 k/uL (0-0.7); Eosinophils % (A) 1 %; HCT 37.3 % (34.0-46.0); HGB 12.7 gm/dL (11.4-16.0); Lymphocytes # (A) 1.1 k/uL (1.0-4.8); Lymphocytes % (A) 11 %; MCH 33.3 pg (25.0-35.0); MCHC 34.1 g/dL (31.0-37.0); MCV 97.8 fL (80.0-100.0); Mean Platelet Volume 8.9; Monocytes # (A) 0.4 k/uL (0-1.0); Monocytes % (A) 4 %; Neutrophils # (A) 7.9 k/uL (1.3-7.7); Neutrophils % (A) 82 %; Platelet Count 155 k/uL (150-450); RBC 3.81 m/uL (3.80-5.40); RDW 12.7 % (11.5-15.5); WBC 9.6 k/uL (3.8-10.6)
[2020-05-14 16:53] LABS: ALT 13 U/L (4-34); AST 21 U/L (14-36); African American GFR (CKD) >90 (>60 ml/min/1.73 sqM); Blood Urea Nitrogen 7 mg/dL (7-17); Non-African American GFR(CKD) >90 (>60 ml/min/1.73 sqM); Uric Acid 4.7 mg/dL (3.7-7.4)
[2020-05-14 17:39] VITALS: BP 140/82; PULSE 106; TEMP 98.6
== END 2020-05-14 17:13 | disposition home or self-care (01) ==
LOC: FBPOP 14:23
PROVIDERS: ATTEND Obstetrics & Gynecology Obstetrics
DX: O13.2 Gestational [pregnancy-induced] hypertension without significant proteinuria, second trimester (principal); Z3A.19 19 weeks gestation of pregnancy
CPT/HCPCS: 82570; 84156; 82565; 84450; 84460; 84520; 84550; 85025; 81001; G0463; 99215

== ENCOUNTER 2020-05-23 05:53 | Observation (INO) | payer OTHER ==
[2020-05-23] MEDS: LACTATED RINGERS 1,000 ML IV SCH ×2 (06:30→13:17)
[2020-05-23 06:37] LABS: Basophils # (A) 0.1 k/uL (0-0.2); Basophils % (A) 1 %; Eosinophils # (A) 0.1 k/uL (0-0.7); Eosinophils % (A) 1 %; HCT 36.7 % (34.0-46.0); HGB 12.9 gm/dL (11.4-16.0); Lymphocytes # (A) 1.2 k/uL (1.0-4.8); Lymphocytes % (A) 15 %; MCH 33.5 pg (25.0-35.0); MCV 95.7 fL (80.0-100.0); Mean Platelet Volume 7.9; Monocytes # (A) 0.3 k/uL (0-1.0); Monocytes % (A) 4 %; Neutrophils # (A) 6.2 k/uL (1.3-7.7); Neutrophils % (A) 77 %; Platelet Count 214 k/uL (150-450); RBC 3.84 m/uL (3.80-5.40); RDW 12.5 % (11.5-15.5)
[2020-05-23] MEDS: miSOPROStoL 200 MCG TAB VAGINAL SCH ×4 (07:15→21:10)
--- NOTE | 2020-05-23 07:19 | P.HPOB ---
History of Present Illness H&P Date: 05/23/20 Chief Complaint: IUFD 18 weeks This is a 29-year-old 7 para 2041 at 20-2/7 weeks that presents to labor and delivery for induction of labor secondary to intrauterine demise. Patient had a fall a proximally 2 weeks ago with subsequent bleeding to follow, patient was seen in the emergency department bleeding was minimal, ultrasound was normal. Patient's follow-up in the office the following day revealed a normal-appearing placental/ ultrasound. Patient presented yesterday for growth ultrasound which revealed no heart tones. Patient states her bleeding has been much improved. Patient denies cramping area patient denies fevers chills nausea vomiting abdominal tenderness. Patient does have a history of gestational hypertension with her prior pregnancies and has been taking baby aspirin daily. Patient in addition has a history of depression after her last delivery. On blood work she is reluctant O+, rubella status immune, RPR is nonreactive, hepatitis B surface antigen is negative, HIV negative. Review of Systems Constitutional: Denies chills, Denies fatigue, Denies fever Ears, nose, mouth and throat: Denies headache Cardiovascular: Reports leg edema Respiratory: Denies dyspnea Gastrointestinal: Denies constipation, Denies diarrhea, Denies nausea, Denies vomiting Genitourinary: Reports Past Medical History Past Medical History: No Reported History History of Any Multi-Drug Resistant Organisms: None Reported Past Surgical History: No Surgical Hx Reported Past Anesthesia/Blood Transfusion Reactions: No Reported Reaction Past Psychological History: No Psychological Hx Reported Smoking Status: Never smoker Past Alcohol Use History: None Reported Past Drug Use History: None Reported - Past Family History Mother Family Medical History: No Reported History Medications and Allergies Home Medications Medication Instructions Recorded Confirmed Type Bfa-Yfre-Ikasn Acid 1 cap PO DAILY 08/23/18 05/23/20 History [-U Capsule (formulary)] Allergies Allergy/AdvReac Type Severity Reaction Status Date / Time No Known Allergies Allergy Verified 05/23/20 05:59 Exam Osteopathic Statement: *. No significant issues noted on an osteopathic structural exam other than those noted in the History and Physical/Consult. Intake and Output 05/22/20 05/23/20 05/23/20 22:59 06:59 14:59 Other: # Voids 1 Weight 81.647 kg Targeted physical exam is performed in this date in general this a well- nourished well-developed female in no acute distress, breathing is nonl abored, heart has regular rate and rhythm, abdomen is gravid, on cervical exam she is fingertip/50/high station 600 g of Cytotec is placed vaginally. Results Result Diagrams: 05/23/20 06:10 Assessment and Plan (1) IUFD (intrauterine ) Current Visit: Yes Status: Acute Code(s): CQN6147 - SNOMED Code(s): 479808599 Plan: This 29-year-old to 04 to at 20-2/7 weeks presents to labor and delivery for induction of labor secondary to intrauterine demise. Patient had Cytotec placed this morning. We'll plan Cytotec 600 g every 4 hours. We will order Stadol/epidural per anesthesia for pain control.
[2020-05-23 07:41] LABS: HCT 35.5 % (34.0-46.0); MCH 32.6 pg (25.0-35.0); MCHC 33.9 g/dL (31.0-37.0); MCV 96.1 fL (80.0-100.0); Mean Platelet Volume 8.2; Platelet Count 203 k/uL (150-450); RDW 13.1 % (11.5-15.5); WBC 9.3 k/uL (3.8-10.6)
[2020-05-23 08:00] LABS: Partial Thromboplastin Time 22.1 sec (22.0-30.0); Prothrombin Time 10.5 sec (9.0-12.0)
[2020-05-23] MEDS ORDERED: LABETALOL 100 MG TAB PO STA (12:20)
[2020-05-23] MEDS: BUTORPHANOL 1 MG/ML 1 ML VIAL IV PRN ×3 (12:44→17:56)
--- NOTE | 2020-05-23 18:23 | P.PROBDLV ---
Vaginal Delivery Note - . Vaginal Delivery Note: 29-year-old 042 at 20 weeks of gestation presents for induction of labor secondary to diagnosis of intrauterine demise. Patient was admitted and Cytotec was placed vaginally, 600 g. Patient progressed through labor getting an additional 2 doses of Cytotec and receiving Stadol multiple times throughout. Patient underwent amniotomy with pink tinged fluid noted. Patient quickly delivered a male IUFD. With 2 small pushes placenta was delivered intact, bleeding was noted to be minimal. Uterus was noted to be firm. Patient denies pain. On inspection the patient's vaginal vault no lacerations were appreciated. Patient tolerated delivery well.
--- NOTE | 2020-05-23 18:29 | P.DS ---
Providers Date of admission: 05/23/20 05:53 Expected date of discharge: 05/23/20 Attending physician: Sahara Rodarte Primary care physician: Stated None - Discharge Diagnosis(es) (1) IUFD (intrauterine ) Current Visit: Yes Status: Acute Hospital Course: This 29-year-old at approximately 20 weeks of gestation had been seen in the office yesterday with a diagnosis of intrauterine demise. Patient had a fall approximately 2 weeks ago was evaluated that evening in normal ultrasound was appreciated. Additional ultrasound the following day was normal in nature. Patient presented yesterday to the office where intrauterine demise was diagnosed. Patient was admitted to labor and delivery Cytotec induction of labor was begun. Patient had 600 g of Cytotec placed around 7 AM this morning. Patient progressed through a eventually getting an additional 2 doses of Cytotec. Patient requested Stadol multiple times through labor. Patient underwent amniotomy we when she was 3 cm dilated and feeling pressure. [place] tinged fluid was noted. Patient quickly delivered a nonviable male . A tight nuchal cord 3 was appreciated. Generalized edema was appreciated. No gross anomalies were appreciated. The umbilical cord was doubly clamped and cut the placenta was delivered spontaneously intact, with 2 pushes from mom. Minimal bleeding was noted after delivery of the placenta. Uterus was firm and below the umbilicus. Patient is requesting discharge home after recovery. Patient Condition at Discharge: Good Plan - Discharge Summary New Discharge Prescriptions: No Action Yhg-Zuxb-Rtfui Acid [-U Capsule (formulary)] 1 cap PO DAILY Discharge Medication List Qhy-Zqbg-Qacqt Acid [-U Capsule (formulary)] 1 cap PO DAILY 08/23/18 [History] Follow up Appointment(s)/Referral(s): Sahara Rodarte DO [Doctor of Osteopathic Medicine] - 1 Week Activity/Diet/Wound Care/Special Instructions: Patient can expect menstrual-like bleeding, cramping. Zftp-leo-izlnqaj ibuprofen 600 mg as needed for pain. Patient should call the office prior to her 1 week follow-up should any concerns arise prior to that appointment. Discharge Disposition: HOME SELF-CARE
[2020-05-23] MEDS: buPROPion XL 150 MG TAB.ER.24H PO SCH (21:10)
[2020-05-23] MEDS ORDERED: ACETAMINOPHEN TAB 325 MG TAB PO PRN (21:11)
[2020-05-23] MEDS ORDERED: diphenhydrAMINE 50 MG CAP PO PRN (21:11)
[2020-05-23] MEDS ORDERED: ZOLPIDEM 5 MG TAB PO PRN (21:11)
[2020-05-23] MEDS ORDERED: IBUPROFEN 600 MG TAB PO PRN (21:11)
[2020-05-23] MEDS ORDERED: BENZOCAINE/MENTHOL SPRAY 1 GM/SPRAY AEROSOL TOPICAL PRN (21:11)
[2020-05-23] MEDS ORDERED: diphenhydrAMINE 25 MG CAP PO PRN (21:11)
[2020-05-23] MEDS ORDERED: HYDROCORTISONE 2.5% RECTAL CREAM 30 GM TUBE RECTAL PRN (21:11)
[2020-05-23] MEDS ORDERED: OXYTOCIN 30 UNITS/500 ML NS 30 UNIT in SALINE 1 500ML.BAG IV SCH (21:15)
[2020-05-23 21:20] VITALS: RESP 16
[2020-05-24] MEDS ORDERED: SENNOSIDES-DOCUSATE SODIUM 1 EACH TAB PO SCH (08:00)
--- NOTE | 2020-05-24 08:55 | P.PNOBGVD ---
Subjective - Subjective Principal diagnosis: PPD 1 IUFD Interval history: Patient is doing well . Her mood is good this morning. She is ambulating and voiding without difficulty. She is tolerating a regular diet. She denies pain. She states her lochia is minimal. Patient reports: Reports appetite normal, Reports pain well controlled, Reports ambulating normally : (IUFD) Objective - Latest Vital Signs Latest vital signs: Vital Signs Temp Pulse Resp BP Pulse Ox 05/23/20 20:19 98.4 F 90 16 136/71 05/23/20 19:49 89 16 145/84 05/23/20 19:19 82 16 139/79 05/23/20 19:04 88 18 141/66 05/23/20 18:49 90 17 141/65 99 05/23/20 18:34 91 19 143/64 Intake and Output 05/23/20 05/24/20 05/24/20 22:59 06:59 14:59 Other: # Voids 1 - Exam Extremities: Present: normal, edema Abdomen: Present: normal appearance Uterus: Present: normal Assessment and Plan (1) IUFD (intrauterine ) Current Visit: Yes Status: Acute Code(s): [id number] - SNOMED Code(s): 901366592 (2) Status post vaginal delivery Current Visit: Yes Status: Acute Code(s): GVN0014 - SNOMED Code(s): 217893298 Plan: 29-year-old status post vaginal delivery 420 week intrauterine demise, patient is doing well this morning. Anticipate discharge home later today.
[2020-05-24 10:07] VITALS: BP 130/87; PULSE 92; TEMP 97.9
[2020-05-24] MEDS: buPROPion XL 150 MG TAB.ER.24H PO SCH (11:47)
== END 2020-05-24 11:45 | disposition home or self-care (01) ==
LOC: INTOOBSV 05:53 → 4FBP 05:53 → UNDODISIN 05-24 11:45
PROVIDERS: ADMIT Obstetrics & Gynecology Obstetrics; ATTEND Obstetrics & Gynecology Obstetrics
PROC: 3E0P7VZ Introduction of Hormone into Female Reproductive, Via Natural or Artificial Opening (ICD-10-PCS; principal; 2020-05-23)
PROC: 10E0XZZ Delivery of Products of Conception, External Approach (ICD-10-PCS; principal; 2020-05-23)
DX: O02.1 Missed abortion (principal); O69.1XX0 Labor and delivery complicated by cord around neck, with compression, not applicable or unspecified; Z3A.20 20 weeks gestation of pregnancy; W19.XXXA Unspecified fall, initial encounter
CPT/HCPCS: 96376; 96374; 86900; 86901; 88305; 85025; 85027; 85610; 85730; 86850; 86870; 86880; G0378 ×2; G0379; J0595; S0191; J2590